=== PATIENT | male | born 1970 | race Caucasian/White ===

== ENCOUNTER → 2018-10-24 11:42 | Outpatient (CLI) | payer BC, SELFPAY ==
--- NOTE | 2018-10-24 11:52 | RAD_ITS ---
STUDY: X-RAY - RIGHT KNEE REASON FOR EXAM: Male, 48 years old. Medial pain TECHNIQUE: 4 view(s) of the knee. COMPARISON: None. FINDINGS: Normal visualized distal femur. Normal visualized proximal tibia and fibula. Normal proximal tibiofibular articulation. Normal medial femorotibial compartment. Normal lateral femorotibial compartment. Normal patellofemoral articulation. The soft tissue structures are unremarkable. RAD/Knee 4 or More Views IMPRESSION: Normal x-ray examination of the knee. Electronically Signed: Mario Landin MD at 12:32 EST , Service support ,
== END ==
PROVIDERS: Family Provider Family Medicine; PCP Family Medicine; Referring Provider Family Medicine; Visit Provider Family Medicine
DX: M25.561 Pain in right knee (principal)
CPT/HCPCS: 73564

== ENCOUNTER → 2019-03-07 12:24 | Outpatient (CLI) | payer BC, SELFPAY ==
[2019-03-07 14:19] LABS: Absolute Lymphocyte Count 2.52 X10^3/ul (0.83-4.51); Absolute Neutrophil Count 4.5 X10^3/uL (2.0-7.7); Basophil# 0.03 X10^3/uL; Basophil% 0.4 % (0-1); Eosinophil# 0.08 X10^3/uL; Hematocrit 46.7 % (40-54); Hemoglobin 16.2 g/dl (13.0-16.5); Lymphocyte # 2.52 X10^3/ul (4.0); Lymphocyte % 32.8 % (19-41); Mean Corp Hgb Conc 34.7 g/gl (32-36); Mean Corpuscular Hgb 31.8 pg (27.0-32.0); Mean Corpuscular Volume 91.6 fL (80-94); Mean Platelet Vol. 9.7 fl (6.2-12.0); Monocyte% 6.5 % (0-10); Neutrophil # 4.54 X10^3/uL (2.7-7.7); POSITIVE COUNT NO; POSITIVE DIFFERENTIAL NO; POSITIVE MORPHOLOGY NO; Platelet Count 226 K/mm3 (150-450); RBC Distribution Width CV 14.5 % (11.6-14.6); RBC Distribution Width SD 47.7 fl (35.1-43.9); White Blood Count 7.7 K/mm3 (4.4-11.0)
[2019-03-07 14:44] LABS: Anion Gap 7 (5-15); BUN 11 mg/dL (7-18); Chloride 105 mmol/L (98-107); EST Glomerular Filtration Rate 85 mL/min (>60); Est Glom Filt Rate - Afr Amer 103 mL/min (>60); Glucose 94 mg/dL (74-106); Potassium 3.9 mmol/L (3.5-5.1); Sodium Level 140 mmol/L (136-145); Thyroid Stim Hormone (TSH) 1.65 uIU/mL (0.358-3.74)
== END ==
PROVIDERS: Family Provider Family Medicine; PCP Family Medicine; Referring Provider Family Medicine; Visit Provider Family Medicine
DX: R53.83 Other fatigue (principal); E55.9 Vitamin D deficiency, unspecified
CPT/HCPCS: 36415; 80048; 82306; 84403; 84443; 85025

== ENCOUNTER → 2020-01-29 15:58 | Outpatient (CLI) | payer OTHER, SELFPAY ==
--- NOTE | 2020-01-29 15:59 | MRI_ITS ---
STUDY: MRI ORBITS WITH AND WITHOUT CONTRAST REASON FOR EXAM: Male, 49 years old. ulcerated lesion right medial canthus,suspicious for carcinoma -- lesion x 5 years , at rt side bridge of nose at corner of eye TECHNIQUE: Standardized fat and water weighted pulse sequences were obtained in all 3 orthogonal planes, pre-and post contrast administration. IV dotarem 13ml was administered for the contrast portion of the examination. COMPARISON: None. FINDINGS: There is low signal soft tissue density measuring approximately 5 x 6 x 14 L noted within the soft tissues in the right medial canthus along the right side of the nasal bridge on the T1-weighted imaging sequence which becomes high signal on T2 and enhances following contrast administration and may be consistent with neoplasm. There is no evidence for intraorbital extension. Cannot definitively exclude involvement of the nasal bone. CT would be helpful for further evaluation Normal bilateral globes. Normal bilateral optic nerve sheath complexes and optic nerves. Normal bilateral intraconal and extraconal spaces. Normal bilateral extraocular muscles. Normal optic chiasm and post-chiasmatic tracts. Normal sella turcica, pituitary gland, infundibular stalk, and hypothalamus. Normal bilateral cavernous sinuses. Normal tectal plate and pineal gland. Normal flow voids within the major intracranial circulation suggesting patency by spin echo criteria. Normal size of the ventricles and extra-axial spaces for the patient''s age. Normal white matter tracts of the supratentorial brain. Normal bilateral basal ganglia. Normal thalami. There is no extra-axial fluid accumulation. Normal midbrain, ivelisse and medulla. Normal cerebellum. Normal basal cisterns. MRI/Orbit Face Neck W/WO Contrast IMPRESSION: Nonspecific enhancing skin lesion in the right medial canthus which may be consistent with neoplasm which does not appear to be extending into the orbit.. CT would be helpful to assess for possible bone involvement. Clinical correlation is recommended Electronically Signed: Yair Mcgee MD at 18:37 EDT , Service support ,
== END ==
PROVIDERS: PCP Family Medicine; Referring Provider Surgery; Visit Provider Surgery
DX: D49.2 Neoplasm of unspecified behavior of bone, soft tissue, and skin (principal); F17.200 Nicotine dependence, unspecified, uncomplicated
CPT/HCPCS: 70543; A9575

== ENCOUNTER → 2020-02-07 13:47 | Outpatient (CLI) | payer OTHER, SELFPAY ==
--- NOTE | 2020-02-07 13:48 | CT_ITS ---
STUDY: CT MAXILLOFACIAL SINUSES REASON FOR EXAM: Male, 49 years old. ULCERATED LESION RIGHT MEDIAL MEATAL CANTHAL AREA. R/O BONY INVOLVEMENT RADIATION DOSAGE (If Supplied By Facility): CTDIvol = ( 29.38 ) mGy, DLP = ( 554.80 ) mGycm TECHNIQUE: The patient was scanned in a multi detector CT scanner. High resolution axial imaging was performed without the administration of intravenous contrast material. Sagittal and coronal images were reconstructed. Individualized dose optimization techniques were used for this CT. COMPARISON: None. FINDINGS: There is a 6.9 mm x 3.1 mm soft tissue defect along the medial meatal canthal area on the right side. This is suggestive of prior area of biopsy. No bony abnormality is seen. FRONTAL SINUSES: Normal aeration, without mucosal inflammatory disease. ETHMOIDAL SINUSES: Normal aeration, without mucosal inflammatory disease. MAXILLARY SINUSES: Normal aeration, without mucosal inflammatory disease. SPHENOIDAL SINUSES: Normal aeration, without mucosal inflammatory disease. There is patency of the bilateral maxillary infundibuli with normal uncinate processes, ethmoid bullae, and hiatus semilunaris. Normal bilateral middle turbinates. Normal bilateral inferior turbinates. Normal midline nasal septum. There is patency of the bilateral nasal airways. The visualized osseous structures are normal. The visualized bilateral orbital contents are normal. CT/Sinus/Facial Bone IMPRESSION: 6.9 mm x 3.1 mm soft tissue defect along the medial metal capsule area on the right side. The underlying bony structures unremarkable Electronically Signed: Eusebio Park, at 14:44 EDT , Service support ,
== END ==
PROVIDERS: PCP Family Medicine; Referring Provider Surgery; Visit Provider Surgery
DX: D49.2 Neoplasm of unspecified behavior of bone, soft tissue, and skin (principal); F17.200 Nicotine dependence, unspecified, uncomplicated
CPT/HCPCS: 70486

== ENCOUNTER 2020-02-22 05:51 | Day surgery (SDC) | payer OTHER, SELFPAY ==
--- NOTE | 2020-02-21 22:35 | HP.PCM_ITS ---
History and Physical Date of Admission: 02/22/20 HISTORY OF PRESENT ILLNESS 49 year old male presents for evaluation for TBSE. He has concerns about an ulcerated lesion on his right medial canthal area extending up to medial canthus and inferiorly to the supramedial cheek and lateral nasal sidewall areas that has increased in size over the last several months. He denies fever. He denies drainage. He denies visual problems. He denies epiphora. He states that 4 years ago that he sustained a welding burn to his right medial canthal area. An MRI was done on 01/29/20 which showed nonspecific enhancing skin lesion in the right medial canthus which may be consistent with neoplasm which does not appear to be extending into the orbit. CT would be helpful to assess for possible bone involvement. Clinical correlation is recommended. A CT was done on 02/07/20 which showed 6.9 mm x 3.1 mm soft tissue defect along the medial metal capsule area on the right side. The underlying bony structures unremarkable. PAST MEDICAL HISTORY No pertinent past medical history PAST SURGICAL HISTORY thoracotomy ALLERGIES No Known Allergies MEDICATIONS NK FAMILY HISTORY Other - Cancer, Lung cancer SOCIAL HISTORY Patient is a smoker REVIEW OF SYSTEMS General - Denies fever, fatigue, and weight loss. Eyes - Denies cataracts and glaucoma. No visual problems. No epiphora. ENT - Denies nasal congestion and sore throat. Endocrine - Denies excessive thirst and urination. Skin - Has enlarging lesion right medial canthal area with extension to medial canthus and supramedial cheek and right lateral nasal sidewall. Musculoskeletal - Denies joint pain, joint stiffness, weakness of muscles and joints, back pain, and arthritis. Neuro - Denies headaches. Cardiovascular - Denies chest pain, fatigue, and shortness of breath with exertion. Psych - Denies anxiety and depression. Respiratory - Denies chronic cough and shortness of breath. Patient is a smoker. Gastrointestinal - Denies nausea, vomiting, diarrhea, and constipation. Hematologic - Denies abnormal bruising and bleeding. Genitourinary - Denies hematuria and urinary frequency. PHYSICAL EXAMINATION General - Alert and Oriented. HEENT - PERRL. EOMI. Throat is clear. On the right medial canthal area extending to medial canthus and supramedial cheek and right lateral nasal sidewall is an ulcerated lesion that measures 2.4 cm. The ulceration appears adherent to the underlying bone. There are irregular borders. Lesion is nontender. Patient able to close and open his eyelids. No evidence of ectropion. Neck - Supple and nontender. No cervical adenopathy. No suspicious lesions noted. Lungs - Clear to auscultation. Heart - Regular rate and rhythm. Abdomen - Soft and nondistended. Extremities - FROM. No axillary adenopathy. Radial pulses are palpable. No suspicious lesions noted. Neuro - CN II-XII grossly intact. Psych - Normal mood and affect. ASSESSMENT 1. 2.4 cm ulcerated lesion right medial canthal area extending to medial canthus and supramedial cheek and right lateral nasal sidewall. 2. Smoker. PLAN Clinically this ulcerated lesion is consistent with a basal cell carcinoma or squamous cell carcinoma. Anticipate involvement of the medial canthus and the medial aspect of the eyelids as well as involvement of the lacrimal system. Depending on the Pathology, some underlying bone may be excised as well. An MRI was done on 01/29/20 which showed nonspecific enhancing skin lesion in the right medial canthus which may be consistent with neoplasm which does not appear to be extending into the orbit. CT would be helpful to assess for possible bone involvement. Clinical correlation is recommended. A CT was done on 02/07/20 which showed 6.9 mm x 3.1 mm soft tissue defect along the medial metal capsule area on the right side. The underlying bony structures unremarkable. Recommend excision of this ulcerated lesion and send it to Pathology for analysis to rule out carcinoma in order to establish a diagnosis. Surgery can be done on an outpatient basis under general anesthesia. Depending on the Pathology, may need evaluation with Oncology. If margins are positive, additional tissue is needed. At that point, would benefit from using the Moh's technique to remove the positive margins in preparation for soft tissue reconstruction. Because the size of the defect may be large after the Moh's technique, he would be best served then to have the soft tissue reconstruction done at a tertiary center such as [facility]. The Moh's micrographic surgery can also be done at that tertiary center as well. Surgery would entail multiple flaps such as a forehead flap, cartilage grafts, and skin grafts. Anticipate multiple procedures. If issues develop in the future with epiphora, would need to address the lacrimal system on the right. A dacrocystorhinostomy drainage procedure would be needed or the placement of a Burkett tube to help with drainage. At the time of the excision of the carcinoma, can place silastic tubing into the lacrimal system for stenting. Patient was informed of the risks and complications of the procedure including alternatives to surgery. These were discussed with the patient personally. Patient voices understanding and wishes to proceed. Some of the risks and complications were included in a form from the [employer] [place] [employer]. Encouraged patient to stop smoking as it may have deleterious effects on wound healing. We discussed the current risks associated with COVID-19. While it is understood that there is a community spread of COVID-19, the risk of josé antonio COVID-[address] [facility] ([facility]) is very low; however, the risk cannot be completely mitigated because of the community spread of the disease. We discussed in detail the risk of exposure to and/or potential harm posed by the COVID-19 virus with having a surgery/procedure at this time versus the risk of delaying the surgery/procedure. It is not possible to know either the risk of delaying the surgery or procedure or chance of getting an infection with perfect accuracy, but a joint decision was made to proceed at this time with the scheduled surgery/procedure as indicated on the consent form. Patient was notified that we will need to comply with any screening or testing [facility] wishes to perform or that surgery may be delayed for any positive results. At the present time there is no testing for the surgeons. The hospital is working on a policy for that to have the surgeon and surgical staff tested. So he has the option to wait until the surgeon and surgical staff are tested or he can proceed with the surgery at this time before the surgeon and surgical staff are tested. As long as this lesion is not increasing in size dramatically, the surgery can be temporarily delayed until surgeon and surgical staff testing are done. He thought about it and wishes to proceed at this time. Procedure Criteria Procedure Type: Elective COVID Risk Discussion: The surgeon/proceduralist and patient have discussed in detail the risk of exposure to and/or potential harm posed by the COVID-19 virus with having a surgery/procedure at this time versus the risk of delaying the surgery/procedure. It is not possible to know either the risk of delaying the surgery or procedure or chance of getting an infection with perfect accuracy, but a joint decision was made between the patient and the surgeon/proceduralist to proceed at this time with the scheduled surgery/procedure as indicated on the consent form.
[2020-02-22] VITALS (8 sets, daily range): BP systolic 124–151; BP diastolic 94–109; PULSE 86–96; RESP 15–16; TEMP 36.1–37.1; O2SAT 93–100; BMI 23.8
--- NOTE | 2020-02-22 | LES_PTH ---
PATIENT: RAMAKRISHNA CRONIN [place] [facility] [place][id number] AGE/SX: 49/M ROOM: RE02/22/[address]: Dr. David Haines MD : 1970 BED: DIS: 02/22/2020 SPEC #: [id number] RECD: 02/22/20 08:16 STATUS: OTTO HEATHER #: [id number] LEVI: 02/22/20 00:[address]: David Haines DEPT: SURGICAL PATHOLOGY RECD BY: Julieth العلي ENTERED: 02/22/20 09:32 SP TYPE: Lesion OTHR DR: Dr. Vish Headley MD Tissues: Skin of face, NOS Procedures: Frozen Section (charge) Frozen Section Add'l ([facility]) Surgery Specimen Level IV HEADER OPERATION: Excision ulcerated lesion right lateral nasal sidewall/supramedial cheek canthal area PRE-OP DIAGNOSIS: Ulcerated lesion right lateral nasal sidewall/supramedial cheek canthal area TISSUE SUBMITTED: Ulcerated lesion right lateral nasal sidewall/supramedial cheek/medial canthal area (suture at 12 o'clock) for FS FROZEN SECTION DIAGNOSIS Ulcerated lesion right lateral side wall/supramedial cheek/medial canthal area, biopsy: Basal cell carcinoma. SJ:heidy 02/22/20 MICROSCOPIC DIAGNOSIS Skin lesion of supramedial cheek, biopsy: Basal cell carcinoma. See comment. AM:heidy 02/23/20 COMMENT The carcinoma extends to the peripheral and deep margin of excision. Clinical correlation is suggested. Case has been reviewed in consultation with Dr. See who concurs with the above diagnosis. IDC:[email or web address] MICROSCOPIC DESCRIPTION Slides are reviewed. GROSS DESCRIPTION Received fresh for frozen section diagnosis labeled with the patient's name is a specimen designated ulcerated lesion right lateral nasal sidewall/supramedial cheek/medial canthal area. The specimen consists of a piece of reilly-white skin measuring 2.5 x 1.5 x 0.4 cm. The specimen is oriented by a suture?presumed to be 12 o'clock. The specimen is inked as follows: 12 to 3 o'clock - black, 3 to 6 o'clock??blue, 6 to 9 o'clock - green and 9 to 12 o'clock - yellow. The specimen is serially sectioned and submitted entirely for frozen section diagnosis in two cassettes. / SJ:heidy 02/22/20 TC:0 CPT: 94755, 88549, 24446 ADDENDUM ADDENDUM ADDENDUM ADDENDUM ADDENDUM ADDENDUM ADDENDUM ADDENDUM ADDENDUM ADDENDUM 06/07/2020 10:38 ADDENDUM 06/07/2020 10:38 ADDENDUM 06/07/2020 10:38 ADDENDUM 06/07/2020 10:38 ADDENDUM 06/07/2020 10:38 This addendum is added to incorporate an outside pathology consultation report. The case was examined at [facility] (#[id number]) and the following diagnosis was rendered. Skin, left supramedial cheek, shave biopsy: Basal cell carcinoma, nodular, micronodular and infiltrative types. Please see complete above mentioned consultation report in EMR
[2020-02-22] MEDS: Lactated Ringers 1,000 ML 100 ML IV (06:25)
--- NOTE | 2020-02-22 06:41 | EKG12_ITS ---
Test Reason : PRE OP Blood Pressure : / mmHG Vent. Rate : 078 BPM Atrial Rate : 078 BPM P-R Int : 162 ms QRS Dur : 090 ms QT Int : 362 ms P-R-T Axes : 066 001 032 degrees QTc Int : 412 ms Normal sinus rhythm Normal ECG No previous ECGs available Confirmed by MARY AGUILAR, LINDEN ([id number]), medical editor ARI PANIAGUA ([id number]) on 02/26/2020 11:52:38 AM Referred By: David Haines Confirmed By:CYN HERNANDEZ MD
--- NOTE | 2020-02-22 08:50 | OP.PCM_ITS ---
Report of Operation Date of Procedure: 02/22/20 Pre-Operative Diagnosis: 1. 2.4 cm ulcerated lesion right medial canthal area extending to medial canthus and right supramedial cheek and right lateral nasal sidewall. 2. Smoker. Post-Operative Diagnosis: 1. 2.4 cm ulcerated basal cell carcinoma right medial canthal area extending to medial canthus and right supramedial cheek and right lateral nasal sidewall. 2. Smoker. Surgery/Procedure Performed:: Excision 2.4 cm ulcerated basal cell carcinoma right medial canthal area extending to medial canthus and right supramedial cheek and right lateral nasal sidewall. Description of Surgical Findings:: 49 year old male presents for evaluation for TBSE. He has concerns about an ulcerated lesion on his right medial canthal area extending up to medial canthus and inferiorly to the supramedial cheek and lateral nasal sidewall areas that has increased in size over the last several months. He denies fever. He denies drainage. He denies visual problems. He denies epiphora. He states that 4 years ago that he sustained a welding burn to his right medial canthal area. An MRI was done on 01/29/20 which showed nonspecific enhancing skin lesion in the right medial canthus which may be consistent with neoplasm which does not appear to be extending into the orbit. CT would be helpful to assess for possible bone involvement. Clinical correlation is recommended. A CT was done on 02/07/20 which showed 6.9 mm x 3.1 mm soft tissue defect along the medial metal capsule area on the right side. The underlying bony structures unremarkable. Patient was informed of the risks and complications of the procedure including alternatives to surgery. These were discussed with the patient personally. Patient voices understanding and wishes to proceed. Some of the risks and complications were included in a form from the [employer]. Encouraged patient to stop smoking as it may have deleterious effects on wound healing. Frozen section right medial canthal area extending to medial canthus and right supramedial cheek and right lateral nasal sidewall - basal cell carcinoma. Size of defect right medial canthal area extending to medial canthus and right supramedial cheek and right lateral nasal sidewall - 2.6 x 1.5 x 0.4 cm. seamless hosiery knitter: None Type of Anesthesia:: General Specimen's removed: Ulcerated lesion right medial canthal area extending to medial canthusi and right supramedial cheek and right lateral nasal sidewall to Pathology as a frozen section. Drains: None. Estimated Blood Loss (mL): 50 ml. Description of Procedure: Patient was taken to OR in supine position and was placed under general anesthesia. The face was prepped and draped in the usual fashion. SCD's were placed for DVT prophylaxis. Perioperative antibiotics were given intravenously. Using xylocaine with epinephrine, the ulcerated lesion right medial canthal area extending to medial canthus and right supramedial cheek and right lateral nasal sidewall was infiltrated. After waiting 5 minutes for the anesthetic to take effect, I proceeded with a full thickness excision into the subcutaneous tissue. Some of the subcutaneous tissue was firm which is clinically indicative of presence of carcinoma. On the lateral nasal sidewall, the dissection extended down to the bone. On the supramedial cheek area, the dissection extended to the facial musculature. Medially the dissection proceeded at the level of the medial canthus down into the subcutaneous tissue. The medial canthal tendon and lacrimal sac were not excised. There was a fair amount of bleeding that was easily controlled with electrocautery. After the lesion was excised, a suture was placed at 12 oclock position for pathology orientation. The lesion was sent to Pathology as a frozen section for analysis to rule out carcinoma. Frozen section showed a basal cell carcinoma. Since carcinoma is present, further excision will be necessary with complex facial reconstruction with flaps and grafts and possible bone grafts. Because this is a sensitive area with the need to preserve tissue, additional excision would be best done by a Moh's surgeon. Will set that up at a tertiary center. While there at the tertiary center, he can be evaluated for complex soft tissue and possible bone reconstruction with grafts and flaps. At the time of the excision, the wound measured 2.6 x 1.5 x 0.4 cm. Hemostasis was obtained with electrocautery. The wound was then dressed with Aquacel Silver followed by gauze dressing. 4-0 Nylon sutures were used for tie over stent suture dressing. Patient tolerated the procedure well and was sent to PACU in satisfactory condition. Patient will be sent home on antibiotics and pain medication. He will keep his head elevated during the initial postoperative period. Patient will followup tomorrow for a skin cancer Silver dressing change. We will continue Silver dressing changes three times per week until the final Pathology is available. The followup will be at [facility] until the next surgery is done. Pathology is pending at the present time. Hopefully it will be ready on 02/26/20. When the final pathology is available, will determine if additional surgery can be done here or if he would need to go to a tertiary center for further evaluation and complex facial reconstruction. Grafts/Implants Used: None. - Complications None. - Admit VTE Documentation VTE Present on Admission: No VTE Mechan Device Prophylaxis: SCD's VTE Pharm Prophylaxis ordered?: No Surgery Charges CPT - 10056 ICD-10 - C44.111, C44.311, C44.319, F17.200
--- NOTE | 2020-02-22 08:58 | PCM.DC ---
You will use the following diet at home:: No restrictions, Other - encourage nutritional supplementation with protein to help the healing process. Discharge Activity: May not drive while taking narcotic pain medications., May Shower - in two days from neck down. wash face gently in the sink., - - no heavy lifting. keep head elevated. May shower in (days): 2 - from the neck down. May resume sexual activity in: No Restrictions Ice area for (Minutes): 5 - as needed for facial swelling. Weight Bearing Status: Weight bearing as tolerated Lifting Restrictions: 10 lbs. Keep extremity elevated above heart level: - - elevate head. Call your doctor if your incision/area has: Continuous Slow Oozing, Sudden Increased Bleeding, Increased Pain/ Swelling, Increased Redness, Foul Smelling Discharge, Swelling at the incision site Call your doctor if you observe: Fever of 101 or Higher, Coldness, Increased Pain, Shortness of breath, Chest pain, Calf discomfort, Uncontrolled pain Change Dressing in (Days):: 1 - will change dressing in office tomorrow 02/23/20. Cleanse incision/area with: - - may shower from the neck down in two days. may wash the face and hair gently in the sink. Allergies/Adverse Reactions: Allergies No Known Allergies Allergy (Verified 02/22/20 06:07) Medications to take at Discharge Clindamycin HCl [Cleocin] 300 mg PO TID #21 cap 02/22/20 Oxycodone HCl/Acetaminophen [Percocet 5/325] 1 tablet PO Q4H PRN PRN 7 Days #40 tablet 02/22/20 The following prescriptions were given: Clindamycin HCl [Cleocin] 300 mg PO TID #21 cap Transmission Status: Pending to [facility]/pharmacy #[id number] Oxycodone HCl/Acetaminophen [Percocet 5/325] 1 tablet PO Q4H PRN PRN 7 Days #40 tablet PRN Reason: Pain Score 4-5/10 Transmission Status: Received by [facility]/pharmacy #[id number] Primary Care Physician: Juan Headley MD [Primary Care Provider] - Test Results: Test results from this visit will be discussed in further detail at your follow-up appointment, if applicable. Please Follow Up With: David Haines MD When: tomorrow 02/23/20. call [phone] for appt. Proposed Discharge Date: 02/22/20
== END 2020-02-22 10:02 | disposition home or self-care (01) ==
LOC: SDC 05:52 → AC 05:52
PROVIDERS: PCP Family Medicine; Referring Provider Surgery; Visit Provider Surgery
PROC: (CPT 11643; principal; 2020-02-22 07:20)
DX: C44.111 Basal cell carcinoma of skin of unspecified eyelid, including canthus (principal); C44.311 Basal cell carcinoma of skin of nose; C44.319 Basal cell carcinoma of skin of other parts of face; F17.200 Nicotine dependence, unspecified, uncomplicated; Z11.59 Encounter for screening for other viral diseases
CPT/HCPCS: 11643; 87635; 88305; 88331; 88332; 93005; G2023; J7120; J2405; U0004

== ENCOUNTER → 2022-03-03 | Outpatient (CLI) | payer OTHER, SELFPAY ==
--- NOTE | 2022-03-03 15:20 | LES_PTH ---
PATIENT: RAMAKRISHNA CRONIN LOC: [facility] U#:[id number] AGE/SX: 51/M ROOM: RE03/03/[address]: Dr. Vish Headley MD : 1970 BED: DIS: 03/03/2022 SPEC #: [id number] RECD: 03/03/22 18:06 STATUS: OTTO HEATHER #: [id number] LEVI: 03/03/22 15:[address]: Vish Headley DEPT: SURGICAL PATHOLOGY RECD BY: Marlee Mckenzie Tissues: Skin of arm Procedures: Surgery Specimen Level IV HEADER OPERATION: Shave biopsy PRE-OP DIAGNOSIS: ? SCC left arm TISSUE SUBMITTED: Left arm MICROSCOPIC DIAGNOSIS Left arm lesion, shave biopsy: Consistent with inflamed verrucous keratosis with extensive hyperkeratosis. Negative for malignancy. See comment. ANAHI:heidy 03/05/2022 COMMENT Clinical correlation and appropriate follow up are necessary. MICROSCOPIC DESCRIPTION Slides are reviewed. GROSS DESCRIPTION Received is one container labeled with the patient's name and not further designated. The specimen consists of a piece of reilly-white skin measuring 1 x 0.8 x 0.1 cm. The specimen is inked, serially sectioned and submitted entirely in one cassette. / SJ:rg 03/04/2022 TC:5 CPT: 12528
== END | disposition home or self-care (01) ==
PROVIDERS: PCP Family Medicine; Visit Provider Family Medicine
DX: L98.9 Disorder of the skin and subcutaneous tissue, unspecified (principal)
CPT/HCPCS: 88305

== ENCOUNTER → 2024-01-17 | Outpatient (CLI) | payer OTHER, SELFPAY ==
--- NOTE | 2024-01-17 18:55 | CT_ITS ---
STUDY: LOW DOSE CT LUNG CANCER SCREENING REASON FOR EXAM: Male, 53 years old. Smoker. Patient smokes 2 packs per day for 35 years. RADIATION DOSAGE (If Supplied By Facility): CTDIvol = ( 2.01 ) mGy, DLP = ( 74.49 ) mGycm TECHNIQUE: No contrast was administered. Low dose technique was utilized (average mAS-38 and kVp 120). 1.25 mm axial source images with a slice interval of 1.25-mm were reconstructed in lung windows. 2.5 mm axial source images with a slice interval of 2.5-mm were reconstructed in lung windows. 5.0 mm axial source images with a slice interval of 5.0-mm were reconstructed in soft tissue windows. COMPARISON: None. NODULES: No suspicious nodule is seen. Emphysema: Hyperinflation. Diffuse emphysematous changes with scarring and bullous formation in the lung apices. Mild linear scarring in the medial aspect of the right middle lobe. Minimal scarring in the anterior lingular segment of the left upper lobe. Endobronchial lesion: None Aorta: Minimal atherosclerotic calcification of the aortic arch. CORONARY ARTERIES: Coronary artery calcification is not seen. Heart: Unremarkable Pulmonary artery: Unremarkable Mediastinal nodes: Small mediastinal lymph nodes. Other chest and abdominal findings: CT/Low Dose CT Lung Screening IMPRESSION: Lung-RADS category 2 - Continue annual screening with LDCT in 12 months. IMPORTANT NOTES FOR USE: ACR Lung-RADS Version 1.1 Assessment Categories Release Date: 2018 Category: Coded 0-4 bases on nodule(s) with highest degree of suspicion. Negative screen is defined as categories 1 and 2; a positive screen is defined as categories 3 and 4. Category 3 and 4A nodules that are unchanged on interval CT should be coded as category 2, and individuals returned to screening in 12 months. Category 4X: Category 3 or 4 nodules with additional imaging findings that increase the suspicion of lung cancer, such as spiculation, GGN that doubles in size in 1 year, enlarged lymph notes, etc. Category Modifiers: S (significant finding unrelated to lung cancer) Electronically Signed: Eusebio Park MD at 13:47 EDT ,
== END | disposition home or self-care (01) ==
PROVIDERS: PCP Family Medicine; Referring Provider Family Medicine; Visit Provider Family Medicine
DX: Z12.2 Encounter for screening for malignant neoplasm of respiratory organs (principal); Z87.891 Personal history of nicotine dependence
CPT/HCPCS: 71271